=== PATIENT | male | born 1950 | race Caucasian/White ===

== ENCOUNTER 2019-11-07 15:45 | Inpatient (IN) ==
[2019-11-07] MEDS ORDERED: Aspirin 325 MG TABLET PO ONE (15:58)
[2019-11-07 16:27] LABS: Basophils # 0.1 K/mcL (0.0-0.2); Basophils % 0.4 %; Eosinophils # 0.2 K/mcL (0.0-0.6); Eosinophils % 1.1 %; Hematocrit 50.7 % (37.5-50.1); Immature Granulocytes % 1.5 % (0-4); Lymphocytes # 2.6 K/mcL (0.6-4.6); Lymphocytes % 19.2 %; Mean Corpuscular HGB Conc 33.5 g/dL (31.6-35.5); Mean Corpuscular Hemoglobin 28.3 pg (28.0-33.3); Mean Corpuscular Volume 84.5 fL (83.0-100.0); Mean Platelet Volume 9.6 fL (9.4-12.4); Monocytes # 1.4 K/mcL (0.0-1.3); Monocytes % 10.2 %; Neutrophils # 9.2 K/mcL (1.6-8.9); Platelet Count 287 K/mcL (140-400); Red Cell Distribution Width 14.4 % (11.5-14.5); Segmented Neutrophils % 67.6 %; White Blood Count 13.6 K/mcL (4.3-11.1)
[2019-11-07 16:51] LABS: BUN/Creatinine Ratio 25 (6-26); Blood Urea Nitrogen 22 mg/dL (8-23); Calcium 10.6 mg/dL (8.6-10.3); Carbon Dioxide 25 mEq/L (23-29); Chloride 99 mEq/L (98-107); Glucose 89 mg/dL (70-105); Osmolality,Calculated 277 (280-300); Potassium 3.8 mEq/L (3.5-5.1); Sodium 132 mEq/L (136-145); eGFR For African Americans > 60 (> 60); eGFR For Non-African Americans > 60 (> 60)
[2019-11-07 16:57] LABS: Troponin I 0.32 ng/mL (< 0.04)
[2019-11-07] MEDS ORDERED: Nitroglycerin 0.4 MG TAB.SUBL SL PRN (17:00)
[2019-11-07] MEDS ORDERED: Isovue-370 500 ML BOTTLE IVP ONE (17:34)
[2019-11-07] MEDS ORDERED: Ondansetron 4 MG/2 ML VIAL IVP PRN (18:13)
[2019-11-07] MEDS ORDERED: Naloxone 0.4 MG/ML INJ IVP PRN (18:13)
[2019-11-07] MEDS ORDERED: amLODIPine 5 MG TABLET PO ONE (18:48)
[2019-11-07] MEDS ORDERED: Torsemide 20 MG TABLET PO PRN (18:51)
[2019-11-07] MEDS ORDERED: *HR* Dextrose 50 % in Water (Syg) 50 ML SYRINGE IVP PRN (18:53)
[2019-11-07] MEDS ORDERED: Dextrose Gel 15 GM/37.5 ML TUBE PO PRN ×2 (18:53)
[2019-11-07] MEDS ORDERED: D5% in Water 1,000 ML IVC PRN (18:53)
[2019-11-07] MEDS ORDERED: *HR* Heparin 5,000 UNIT/ML VIAL IVP PRN ×2 (19:22)
[2019-11-07] MEDS ORDERED: *HR* Heparin 5,000 UNIT/ML VIAL IVP ONE (19:22)
[2019-11-07] MEDS ORDERED: Metoclopramide 10 MG/2 ML VIAL IVP PRN (19:24)
[2019-11-07 19:53] LABS: Hematocrit 48.6 % (37.5-50.1); Hemoglobin 16.8 g/dL (12.9-16.9); Mean Corpuscular HGB Conc 34.6 g/dL (31.6-35.5); Mean Corpuscular Hemoglobin 28.3 pg (28.0-33.3); Mean Corpuscular Volume 81.8 fL (83.0-100.0); Mean Platelet Volume 9.4 fL (9.4-12.4); Platelet Count 291 K/mcL (140-400); Red Blood Count 5.94 M/mcL (4.19-5.50); Red Cell Distribution Width 14.4 % (11.5-14.5); White Blood Count 14.1 K/mcL (4.3-11.1)
[2019-11-07 20:02] LABS: Heparin anti-factor XA UFH < 0.04 IU/mL (0.30-0.70); INR 1.1; Prothrombin Time 12.2 Seconds (9.4-12.1)
[2019-11-07] MEDS ORDERED: carvediloL 6.25 MG TABLET PO SCH (21:00)
[2019-11-07] MEDS: Heparin 25,000 UNIT/250 ML D5W 25,000 UNIT/250 ML IV.SOLN IVC SCH (21:47)
[2019-11-07] MEDS: Gabapentin 300 MG CAPSULE PO SCH (21:57)
[2019-11-07] MEDS: Famotidine 20 MG TABLET PO SCH (21:58)
[2019-11-07] MEDS: Insulin DETEMIR 100 UNIT/ML X5UNITS SQ SCH (21:59)
[2019-11-07] MEDS: Isosorbide MONOnitrate (24 HR) 30 MG TAB.ER.24H PO SCH (22:20)
[2019-11-07] MEDS: carvediloL 6.25 MG TABLET PO SCH (22:20)
[2019-11-08 05:28] LABS: Basophils # 0.1 K/mcL (0.0-0.2); Basophils % 0.5 %; Eosinophils # 0.3 K/mcL (0.0-0.6); Eosinophils % 2.1 %; Hematocrit 47.3 % (37.5-50.1); Hemoglobin 15.9 g/dL (12.9-16.9); Immature Granulocytes % 1.9 % (0-4); Lymphocytes # 2.5 K/mcL (0.6-4.6); Lymphocytes % 20.1 %; Mean Corpuscular HGB Conc 33.6 g/dL (31.6-35.5); Mean Corpuscular Hemoglobin 28.4 pg (28.0-33.3); Mean Corpuscular Volume 84.5 fL (83.0-100.0); Mean Platelet Volume 9.7 fL (9.4-12.4); Monocytes # 1.2 K/mcL (0.0-1.3); Monocytes % 9.6 %; Neutrophils # 8.1 K/mcL (1.6-8.9); Platelet Count 249 K/mcL (140-400); Red Cell Distribution Width 14.4 % (11.5-14.5); Segmented Neutrophils % 65.8 %; White Blood Count 12.3 K/mcL (4.3-11.1)
[2019-11-08 05:33] LABS: INR 1.1; Prothrombin Time 12.6 Seconds (9.4-12.1)
[2019-11-08 05:51] LABS: BUN/Creatinine Ratio 22 (6-26); Blood Urea Nitrogen 20 mg/dL (8-23); Calcium 9.7 mg/dL (8.6-10.3); Carbon Dioxide 26 mEq/L (23-29); Chloride 102 mEq/L (98-107); Glucose 95 mg/dL (70-105); Osmolality,Calculated 282 (280-300); Potassium 3.6 mEq/L (3.5-5.1); Sodium 135 mEq/L (136-145); eGFR For African Americans > 60 (> 60); eGFR For Non-African Americans > 60 (> 60)
[2019-11-08] MEDS ORDERED: amLODIPine 5 MG TABLET PO SCH (09:00)
[2019-11-08] MEDS ORDERED: DilTIAZem CD (24hr) 180 MG CAP.ER.24H PO SCH (09:00)
[2019-11-08] MEDS: Insulin LISPRO 300 UNITS/3 ML VIAL SQ SCH ×3 (09:17→17:16)
[2019-11-08] MEDS: DilTIAZem CD (24hr) 180 MG CAP.ER.24H PO SCH (09:35)
[2019-11-08] MEDS: Famotidine 20 MG TABLET PO SCH ×2 (09:35→22:57)
[2019-11-08] MEDS: Isosorbide MONOnitrate (24 HR) 30 MG TAB.ER.24H PO SCH (09:35)
[2019-11-08] MEDS: Gabapentin 300 MG CAPSULE PO SCH ×2 (09:35→22:57)
[2019-11-08] MEDS: Aspirin Enteric Coated 81 MG Tablet PO SCH (09:35)
[2019-11-08] MEDS: carvediloL 6.25 MG TABLET PO SCH ×2 (09:39→17:20)
[2019-11-08 10:36] LABS: Alanine Aminotransferase 11 Units/L (7-52); Albumin 3.6 g/dL (3.5-5.7); Albumin/Globulin Ratio 1.5 (1.1-2.2); Alkaline Phosphatase 50 Units/L (34-104); Aspartate Amino Transferase 16 Units/L (13-39); Bilirubin,Total 0.9 mg/dL (0.3-1.0); Globulin 2.4 g/dL (2.4-3.5)
[2019-11-08] MEDS: Heparin 25,000 UNIT/250 ML D5W 25,000 UNIT/250 ML IV.SOLN IVC SCH (16:20)
[2019-11-08] MEDS: Acetaminophen 325 MG TABLET PO PRN (22:56)
[2019-11-09 00:57] LABS: Basophils # 0.1 K/mcL (0.0-0.2); Basophils % 0.5 %; Eosinophils # 0.3 K/mcL (0.0-0.6); Eosinophils % 2.2 %; Hematocrit 44.5 % (37.5-50.1); Hemoglobin 14.9 g/dL (12.9-16.9); Immature Granulocytes % 1.4 % (0-4); Lymphocytes # 2.2 K/mcL (0.6-4.6); Lymphocytes % 18.5 %; Mean Corpuscular HGB Conc 33.5 g/dL (31.6-35.5); Mean Corpuscular Hemoglobin 28.6 pg (28.0-33.3); Mean Corpuscular Volume 85.4 fL (83.0-100.0); Mean Platelet Volume 9.3 fL (9.4-12.4); Monocytes % 8.9 %; Neutrophils # 8.1 K/mcL (1.6-8.9); Platelet Count 201 K/mcL (140-400); Red Blood Count 5.21 M/mcL (4.19-5.50); Red Cell Distribution Width 14.4 % (11.5-14.5); Segmented Neutrophils % 68.5 %; White Blood Count 11.8 K/mcL (4.3-11.1)
[2019-11-09 01:14] LABS: BUN/Creatinine Ratio 28 (6-26); Blood Urea Nitrogen 24 mg/dL (8-23); Calcium 9.4 mg/dL (8.6-10.3); Carbon Dioxide 24 mEq/L (23-29); Chloride 104 mEq/L (98-107); Glucose 109 mg/dL (70-105); Osmolality,Calculated 285 (280-300); Potassium 3.7 mEq/L (3.5-5.1); Sodium 135 mEq/L (136-145); eGFR For African Americans > 60 (> 60); eGFR For Non-African Americans > 60 (> 60)
[2019-11-09] MEDS: Insulin DETEMIR 100 UNIT/ML X5UNITS SQ SCH (07:28)
[2019-11-09] MEDS: Insulin LISPRO 300 UNITS/3 ML VIAL SQ SCH ×3 (07:50→16:25)
[2019-11-09] MEDS: Aspirin Enteric Coated 81 MG Tablet PO SCH (09:43)
[2019-11-09] MEDS: carvediloL 6.25 MG TABLET PO SCH ×3 (09:43→16:33)
[2019-11-09] MEDS: Gabapentin 300 MG CAPSULE PO SCH ×2 (09:44→20:15)
[2019-11-09] MEDS: DilTIAZem CD (24hr) 180 MG CAP.ER.24H PO SCH (09:44)
[2019-11-09] MEDS: Isosorbide MONOnitrate (24 HR) 30 MG TAB.ER.24H PO SCH (09:44)
[2019-11-09] MEDS: Famotidine 20 MG TABLET PO SCH ×2 (09:45→20:15)
[2019-11-09] MEDS ORDERED: *HR* Heparin 10,000 UNIT/10 ML VIAL ONE ×2 (10:30→11:39)
[2019-11-09] MEDS ORDERED: Heparin 1,000 UNITS/500 mL 500 ML ONE ×2 (10:30→11:45)
[2019-11-09] MEDS ORDERED: 0.9 % Sodium Chloride 2,000 ML ONE (10:31)
[2019-11-09] MEDS ORDERED: ISOVUE-370 200 ML INFUS..BTL ONE ×2 (10:31→12:18)
[2019-11-09] MEDS ORDERED: Verapamil 5 MG/2 ML VIAL ONE (10:31)
[2019-11-09] MEDS ORDERED: Nitroglycerin 1,000 MCG/10 ML VIAL IV ONE ×2 (10:31→12:43)
[2019-11-09] MEDS ORDERED: *HR* Midazolam HCl 2 MG/2 ML VIAL ONE ×3 (10:57→12:07)
[2019-11-09] MEDS ORDERED: *HR* FentaNYL (PF) 100 MCG/2 ML VIAL ONE ×2 (10:57→12:07)
[2019-11-09] MEDS: Heparin 25,000 UNIT/250 ML D5W 25,000 UNIT/250 ML IV.SOLN IVC SCH (12:29)
[2019-11-09] MEDS ORDERED: *HR* Ticagrelor 90 MG TABLET ONE (12:40)
[2019-11-09] MEDS ORDERED: 0.9 % Sodium Chloride 1,000 ML ONE (12:44)
[2019-11-09] MEDS: Acetaminophen 325 MG TABLET PO PRN (14:48)
[2019-11-09] MEDS: *HR* Ticagrelor 90 MG TABLET PO SCH (20:15)
[2019-11-10 02:18] LABS: Basophils % 0.2 %; Eosinophils # 0.3 K/mcL (0.0-0.6); Eosinophils % 2.4 %; Hematocrit 44.8 % (37.5-50.1); Hemoglobin 15.3 g/dL (12.9-16.9); Immature Granulocytes % 1.2 % (0-4); Lymphocytes # 1.8 K/mcL (0.6-4.6); Lymphocytes % 13.6 %; Mean Corpuscular HGB Conc 34.2 g/dL (31.6-35.5); Mean Corpuscular Hemoglobin 28.9 pg (28.0-33.3); Mean Corpuscular Volume 84.5 fL (83.0-100.0); Mean Platelet Volume 9.5 fL (9.4-12.4); Monocytes # 1.2 K/mcL (0.0-1.3); Monocytes % 8.8 %; Neutrophils # 9.6 K/mcL (1.6-8.9); Platelet Count 211 K/mcL (140-400); Red Cell Distribution Width 14.3 % (11.5-14.5); Segmented Neutrophils % 73.8 %; White Blood Count 13.1 K/mcL (4.3-11.1)
[2019-11-10 02:35] LABS: BUN/Creatinine Ratio 23 (6-26); Blood Urea Nitrogen 16 mg/dL (8-23); Calcium 9.5 mg/dL (8.6-10.3); Carbon Dioxide 23 mEq/L (23-29); Chloride 105 mEq/L (98-107); Glucose 91 mg/dL (70-105); Osmolality,Calculated 285 (280-300); Potassium 3.6 mEq/L (3.5-5.1); Sodium 137 mEq/L (136-145); eGFR For African Americans > 60 (> 60); eGFR For Non-African Americans > 60 (> 60)
[2019-11-10] MEDS: Insulin LISPRO 300 UNITS/3 ML VIAL SQ SCH ×3 (07:37→17:18)
[2019-11-10] MEDS: carvediloL 6.25 MG TABLET PO SCH ×2 (07:58→17:18)
[2019-11-10] MEDS: Famotidine 20 MG TABLET PO SCH ×2 (07:59→20:35)
[2019-11-10] MEDS: Isosorbide MONOnitrate (24 HR) 30 MG TAB.ER.24H PO SCH (07:59)
[2019-11-10] MEDS: Gabapentin 300 MG CAPSULE PO SCH ×2 (07:59→20:34)
[2019-11-10] MEDS: Aspirin Enteric Coated 81 MG Tablet PO SCH (07:59)
[2019-11-10] MEDS: *HR* Ticagrelor 90 MG TABLET PO SCH ×2 (08:00→20:34)
[2019-11-10] MEDS: amLODIPine 5 MG TABLET PO SCH (11:15)
[2019-11-10] MEDS ORDERED: Preparation H Ointment 30 GM TUBE RC PRN (14:16)
[2019-11-10] MEDS: *HR* Heparin 5,000 UNIT/ML VIAL SQ SCH (17:18)
[2019-11-10] MEDS ORDERED: *HR* LORazepam 0.5 MG TABLET PO ONE (20:09)
[2019-11-10] MEDS ORDERED: Melatonin 3 MG TABLET PO ONE ×2 (20:14→21:00)
[2019-11-11 04:37] LABS: Basophils % 0.3 %; Eosinophils # 0.3 K/mcL (0.0-0.6); Eosinophils % 2.3 %; Hematocrit 42.8 % (37.5-50.1); Hemoglobin 14.7 g/dL (12.9-16.9); Immature Granulocytes % 1.3 % (0-4); Lymphocytes # 2.1 K/mcL (0.6-4.6); Lymphocytes % 17.9 %; Mean Corpuscular HGB Conc 34.3 g/dL (31.6-35.5); Mean Corpuscular Hemoglobin 28.4 pg (28.0-33.3); Mean Corpuscular Volume 82.6 fL (83.0-100.0); Mean Platelet Volume 9.7 fL (9.4-12.4); Monocytes # 1.1 K/mcL (0.0-1.3); Monocytes % 9.4 %; Platelet Count 212 K/mcL (140-400); Red Blood Count 5.18 M/mcL (4.19-5.50); Red Cell Distribution Width 14.4 % (11.5-14.5); Segmented Neutrophils % 68.8 %; White Blood Count 11.6 K/mcL (4.3-11.1)
[2019-11-11 04:42] LABS: BUN/Creatinine Ratio 21 (6-26); Blood Urea Nitrogen 15 mg/dL (8-23); Calcium 9.6 mg/dL (8.6-10.3); Carbon Dioxide 24 mEq/L (23-29); Chloride 107 mEq/L (98-107); Glucose 101 mg/dL (70-105); Osmolality,Calculated 287 (280-300); Potassium 3.6 mEq/L (3.5-5.1); Sodium 138 mEq/L (136-145); eGFR For African Americans > 60 (> 60); eGFR For Non-African Americans > 60 (> 60)
[2019-11-11] MEDS: *HR* Heparin 5,000 UNIT/ML VIAL SQ SCH ×2 (05:01→16:55)
[2019-11-11] MEDS: amLODIPine 5 MG TABLET PO SCH (07:56)
[2019-11-11] MEDS: Famotidine 20 MG TABLET PO SCH ×2 (07:56→20:47)
[2019-11-11] MEDS: Aspirin Enteric Coated 81 MG Tablet PO SCH (07:56)
[2019-11-11] MEDS: Isosorbide MONOnitrate (24 HR) 30 MG TAB.ER.24H PO SCH (07:56)
[2019-11-11] MEDS: *HR* Ticagrelor 90 MG TABLET PO SCH ×2 (07:57→20:47)
[2019-11-11] MEDS: Gabapentin 300 MG CAPSULE PO SCH ×2 (07:57→20:47)
[2019-11-11] MEDS: Insulin LISPRO 300 UNITS/3 ML VIAL SQ SCH ×3 (07:57→16:56)
[2019-11-11] MEDS: carvediloL 6.25 MG TABLET PO SCH ×2 (07:58→16:55)
[2019-11-11] MEDS ORDERED: Melatonin 3 MG TABLET PO PRN (10:40)
[2019-11-11] MEDS ORDERED: Perflutren Lipid Microsphere 1.3 ML in 0.9 % Sodium Chloride 8.7 ML IVP ONE (13:22)
[2019-11-12 02:14] LABS: Basophils % 0.4 %; Eosinophils # 0.3 K/mcL (0.0-0.6); Eosinophils % 3.3 %; Hematocrit 42.4 % (37.5-50.1); Hemoglobin 14.6 g/dL (12.9-16.9); Immature Granulocytes % 1.4 % (0-4); Lymphocytes # 2.1 K/mcL (0.6-4.6); Lymphocytes % 20.6 %; Mean Corpuscular HGB Conc 34.4 g/dL (31.6-35.5); Mean Corpuscular Volume 84.1 fL (83.0-100.0); Mean Platelet Volume 9.8 fL (9.4-12.4); Monocytes # 1.2 K/mcL (0.0-1.3); Monocytes % 11.6 %; Neutrophils # 6.5 K/mcL (1.6-8.9); Platelet Count 214 K/mcL (140-400); Red Blood Count 5.04 M/mcL (4.19-5.50); Red Cell Distribution Width 14.5 % (11.5-14.5); Segmented Neutrophils % 62.7 %; White Blood Count 10.3 K/mcL (4.3-11.1)
[2019-11-12 02:27] LABS: BUN/Creatinine Ratio 21 (6-26); Blood Urea Nitrogen 16 mg/dL (8-23); Calcium 9.7 mg/dL (8.6-10.3); Carbon Dioxide 23 mEq/L (23-29); Chloride 107 mEq/L (98-107); Glucose 98 mg/dL (70-105); Osmolality,Calculated 287 (280-300); Potassium 3.8 mEq/L (3.5-5.1); Sodium 138 mEq/L (136-145); eGFR For African Americans > 60 (> 60); eGFR For Non-African Americans > 60 (> 60)
[2019-11-12] MEDS: *HR* Heparin 5,000 UNIT/ML VIAL SQ SCH ×2 (05:40→17:37)
[2019-11-12] MEDS: amLODIPine 5 MG TABLET PO SCH (08:13)
[2019-11-12] MEDS: Gabapentin 300 MG CAPSULE PO SCH ×2 (08:14→20:45)
[2019-11-12] MEDS: *HR* Ticagrelor 90 MG TABLET PO SCH ×2 (08:14→20:45)
[2019-11-12] MEDS: Aspirin Enteric Coated 81 MG Tablet PO SCH (08:14)
[2019-11-12] MEDS: carvediloL 6.25 MG TABLET PO SCH ×2 (08:14→17:37)
[2019-11-12] MEDS: Famotidine 20 MG TABLET PO SCH ×2 (08:14→20:45)
[2019-11-12] MEDS: Isosorbide MONOnitrate (24 HR) 30 MG TAB.ER.24H PO SCH (08:14)
[2019-11-12] MEDS: Insulin LISPRO 300 UNITS/3 ML VIAL SQ SCH ×3 (08:15→17:39)
[2019-11-12] MEDS ORDERED: Heparin 1,000 UNITS/500 mL 500 ML ONE (12:16)
[2019-11-12] MEDS ORDERED: Nitroglycerin 1,000 MCG/10 ML VIAL IV ONE (12:16)
[2019-11-12] MEDS ORDERED: ISOVUE-370 200 ML INFUS..BTL ONE (12:16)
[2019-11-12] MEDS ORDERED: 0.9 % Sodium Chloride 1,000 ML ONE (12:16)
[2019-11-12] MEDS ORDERED: *HR* Heparin 10,000 UNIT/10 ML VIAL ONE (12:16)
[2019-11-12] MEDS ORDERED: *HR* FentaNYL (PF) 100 MCG/2 ML VIAL ONE (12:26)
[2019-11-12] MEDS ORDERED: *HR* Midazolam HCl 2 MG/2 ML VIAL ONE (12:26)
[2019-11-12] MEDS ORDERED: Tirofiban 12.5 MG/250ML 12.5 MG/250 ML BAG ONE (13:10)
[2019-11-12] MEDS: Acetaminophen 325 MG TABLET PO PRN (14:50)
[2019-11-12] MEDS ORDERED: *HR* Atropine Sulfate 1 MG/10 ML SYRINGE ONE (15:34)
[2019-11-12 19:33] VITALS: BP 158/102
== END 2019-11-12 23:30 | disposition left against medical advice (07) | DRG 247 ==
LOC: EMEROOARM 15:45 → 3ANU 18:54 → SUATTDRO 18:54 → 3ANU 20:16 → 2NNU 11-09 12:58
PROVIDERS: ADMIT Pharmacist; ATTEND Internal Medicine